=== PATIENT | female | born 1975 | race Caucasian/White ===

== ENCOUNTER 2018-04-12 11:10 | Emergency (ER) | payer OTHER, MEDICAID ==
[~2018-04-12] VITALS: Ht 597.6 cm; Wt 95.5 kg
[~2018-04-12 11:10] MED LIST: CYCL-1 PO; HYDR-569 PO; NEOM10SO7 OT
[2018-04-12] MEDS ORDERED: LIDOcaine 1% 30ml preserv. free vial IJ ONE (12:35)
[2018-04-12] MEDS ORDERED: HYDROcodone/acetaminophen 10/325mg tab PO ONE (12:35)
[2018-04-12] MEDS ORDERED: ondansetron 4mg rapidly disintigrating tab PO ONE (12:35)
[2018-04-12] MEDS ORDERED: TETanus/Pertussis (Acell)/Diphther VAC/PF (Tdap-Adult) 0.5ml syringe IM ONE (12:35)
[2018-04-12] MEDS ORDERED: LIDOcaine 1% (10mg/ml) 5ml syringe IV ONE (13:20)
[2018-04-12] MEDS ORDERED: LIDOcaine 1%/PF 5ML 10 MG/ML VIAL IJ ONE (13:50)
[2018-04-12 15:30] VITALS: BP 148/74
== END 2018-04-12 15:32 | disposition home or self-care (01) ==
LOC: ER 11:11
DX: S06.0X0A Concussion without loss of consciousness, initial encounter (principal); S01.01XA Laceration without foreign body of scalp, initial encounter; S40.022A Contusion of left upper arm, initial encounter; Z79.899 Other long term (current) drug therapy; V47.5XXA Car driver injured in collision with fixed or stationary object in traffic accident, initial encounter; Y93.89 Activity, other specified; Y92.410 Unspecified street and highway as the place of occurrence of the external cause; Y99.9 Unspecified external cause status
CPT/HCPCS: 12002; 70450; 90471; 90715; 96374; 99284; A6449; J2001

== ENCOUNTER 2018-05-30 05:53 | Emergency (ER) | payer MEDICAID ==
[~2018-05-30] VITALS: Ht 170.2 cm; Wt 95.5 kg
[2018-05-30 05:56] VITALS: BP 134/93
[2018-05-30] MEDS ORDERED: HYDR-3965 PO (06:38)
[2018-05-30] MEDS ORDERED: CYCL-1 PO (06:38)
[2018-05-30] MEDS ORDERED: ketorolac trometh. 30mg/ml inj. IM ONE (06:40)
[2018-05-30] MEDS ORDERED: cyclobenzaprine 10mg tablet PO ONE (07:25)
[2018-05-30] MEDS ORDERED: HYDROcodone/acetaminophen 10/325mg tab PO ONE (07:25)
== END 2018-05-30 08:06 | disposition home or self-care (01) ==
LOC: ER 05:53
DX: M54.31 Sciatica, right side (principal); I50.9 Heart failure, unspecified; G89.29 Other chronic pain; F17.200 Nicotine dependence, unspecified, uncomplicated; Z79.2 Long term (current) use of antibiotics; Z79.899 Other long term (current) drug therapy
CPT/HCPCS: 96372; 99283; J1885

== ENCOUNTER 2019-08-03 02:08 | Emergency (ER) | payer MEDICAID ==
[~2019-08-03] VITALS: Ht 175.3 cm; Wt 90.0 kg
[~2019-08-03 02:08] MED LIST changes: +HYDR-4383 PO; -HYDR-569 PO
[2019-08-03] MEDS ORDERED: fentaNYL/PF 50MCG/1 ML 2ML syringe IV ONE ×2 (02:55→06:50)
[2019-08-03] MEDS ORDERED: LORazepam 2 mg/ml vial IV ONE (03:25)
[2019-08-03] MEDS ORDERED: HYDR-4353 PO (04:35)
--- NOTE | 2019-08-03 04:42 | NUR ---
VERBAL ORDER FOR TORADOL 15 MG FROM MD MEDINA
[2019-08-03] MEDS ORDERED: ketorolac trometh. 30mg/ml inj. IV ONE (04:45)
--- NOTE | 2019-08-03 06:29 | NUR ---
EMAN, HUMAN RESOURCES OPERATIONS COORDINATOR IS ON HER WAY.
--- NOTE | 2019-08-03 07:19 | NUR ---
ORTHOTEC DONE WITH PT
[2019-08-03 07:27] VITALS: BP 123/85
== END 2019-08-03 07:31 | disposition home or self-care (01) ==
LOC: ER 02:08
DX: S52.591A Other fractures of lower end of right radius, initial encounter for closed fracture (principal); S52.611A Displaced fracture of right ulna styloid process, initial encounter for closed fracture; I50.9 Heart failure, unspecified; G89.29 Other chronic pain; F17.200 Nicotine dependence, unspecified, uncomplicated; Z95.0 Presence of cardiac pacemaker; Z79.899 Other long term (current) drug therapy; W11.XXXA Fall on and from ladder, initial encounter; Y93.89 Activity, other specified; Y92.89 Other specified places as the place of occurrence of the external cause; Y99.8 Other external cause status
CPT/HCPCS: 29105; 73090; 73110; 73130; 96374; 96375; 96376; 99283; J1885; J3010

== ENCOUNTER 2023-06-24 18:44 | Inpatient (IN) | payer MEDICAID, MEDICARE ==
[~2023-06-24] VITALS: Ht 175.3 cm; Wt 100.0 kg
[2023-06-24 19:03] LABS: BASOPHILS # (AUTO) 0.1 X10'3 (0-0.2); BASOPHILS % (AUTO) 1.1 % (0-1); EOSINOPHILS # (AUTO) 0.1 X10'3 (0-0.9); EOSINOPHILS % (AUTO) 0.7 % (0-6); HEMATOCRIT 45.3 % (35.0-45.0); HEMOGLOBIN 14.6 g/dl (12.0-16.0); LYMPHOCYTES # (AUTO) 2.1 X10'3 (1.1-4.8); LYMPHOCYTES % (AUTO) 24.5 % (21-51); MEAN CORPUSCULAR HGB CONC 32.3 g/dL (33.0-36.5); MEAN CORPUSCULAR VOLUME 92.9 FL (78-98); MEAN PLATELET VOLUME 9.6 FL (7.4-10.4); MONOCYTES # (AUTO) 0.9 X10'3 (0-0.9); MONOCYTES % (AUTO) 10.4 % (2-12); NEUTROPHILS # (AUTO) 5.4 X10'3 (1.8-7.7); NEUTROPHILS % (AUTO) 63.3 % (42-75); PLATELET COUNT 382 X10'3 (140-440); RED BLOOD COUNT 4.87 X10'6 (4.20-5.60); RED CELL DISTRIBUTION WIDTH 14.5 % (11.5-14.5); WHITE BLOOD COUNT 8.6 X10'3 (4.5-11.0)
[2023-06-24 19:19] LABS: ALANINE AMINOTRANSFERASE 41 U/L (12-78); ALBUMIN 3.7 G/DL (3.4-5.0); ALBUMIN/GLOBULIN RATIO 1.1 (1.1-1.5); ALKALINE PHOSPHATASE 72 IU/L (46-116); ANION GAP 8 (8-16); ASPARTATE AMINO TRANSFERASE 31 U/L (10-37); BLOOD UREA NITROGEN 11 MG/DL (7-18); CALCIUM 8.9 MG/DL (8.5-10.1); CHLORIDE 105 MMOL/L (99-107); GLUCOSE 93 MG/DL (70-104); POTASSIUM 3.2 MMOL/L (3.5-5.1); SODIUM 142 MMOL/L (135-145); TOTAL PROTEIN 7.2 G/DL (6.4-8.2); eCRCL 64 ML/MIN; eGFR 53 ML/MIN
[2023-06-24 19:26] LABS: PRO BRAIN NATRIURETIC PEPTIDE 1581 PG/ML (0-125)
[2023-06-24 20:23] LABS: CREATINE KINASE 130 U/L (26-192)
--- NOTE | 2023-06-24 23:00 | NUR ---
relieving RN for break, pt is resting quietly on gurney, a/o x3, resp even and unlabored, pacemaker rep will be coming to ER to assess pacemaker, unable to intregate pacemaker in ER with Marco rowley
[2023-06-25] MEDS ORDERED: potassium Cl 20 mEq SR tablet PO PRN ×2 (01:15)
[2023-06-25] MEDS ORDERED: acetaminophen 325mg tablet PO PRN ×2 (01:15)
[2023-06-25] MEDS ORDERED: magnesium 2GM in 50ml NS 50 ML IV PRN (01:15)
[2023-06-25] MEDS ORDERED: normal saline 1000ml 1,000 ML IV SCH (01:15)
[2023-06-25] MEDS ORDERED: magnesium Cl slow-release 64mg tablet PO PRN (01:15)
[2023-06-25] MEDS ORDERED: HYDROcodone/acetaminophen 5mg/325mg tablet PO PRN (01:15)
[2023-06-25] MEDS ORDERED: HYDROcodone/acetaminophen 10/325mg tab PO PRN (01:15)
[2023-06-25] MEDS ORDERED: ondansetron/PF 4mg/2ml inj IV PRN (01:15)
[2023-06-25] MEDS ORDERED: potassium Cl 40MEQ/1/2NS 520ml 520 ML IV PRN (01:15)
[2023-06-25] MEDS ORDERED: morphine 2 MG/ML inj. syringe IV PRN ×2 (01:15)
[2023-06-25] MEDS ORDERED: magnesium 4gm in 100ml NS 100 ML IV PRN (01:15)
[2023-06-25] MEDS: pantoprazole 40mg Tablet.DR PO SCH ×2 (08:00→20:00)
[2023-06-25] MEDS ORDERED: METO-384 PO (08:34)
[2023-06-25] MEDS ORDERED: FURO20TA4 PO (08:34)
[2023-06-25] MEDS ORDERED: LOSA25TA41 PO (08:34)
[2023-06-25] MEDS ORDERED: furosemide 40mg/4ml inj IV ONE (13:25)
[2023-06-25] MEDS ORDERED: metoprolol succinate 25mg (24-HOUR) SR. Tablet PO ONE (13:30)
[2023-06-25 18:00] VITALS: BP 128/75; PULSE 86; RESP 22; TEMP 97.5; O2SAT 98
[2023-06-25 20:00] VITALS: RESP 22; O2SAT 98
[2023-06-25] MEDS: furosemide 40mg/4ml inj IV SCH (21:01)
[2023-06-25] MEDS: enoxaparin 40mg/0.4ml syringe SQ SCH (21:04)
[2023-06-25 22:00] VITALS: BP 135/80; PULSE 79; RESP 16; TEMP 97.3; O2SAT 99
[2023-06-26] VITALS (11 sets, daily range): BP systolic 126–159; BP diastolic 79–100; PULSE 65–97; RESP 12–16; TEMP 97.2–98.2; O2SAT 94–100
[2023-06-26 06:35] LABS: BASOPHILS # (AUTO) 0.1 X10'3 (0-0.2); BASOPHILS % (AUTO) 0.9 % (0-1); EOSINOPHILS # (AUTO) 0.1 X10'3 (0-0.9); EOSINOPHILS % (AUTO) 1.6 % (0-6); HEMATOCRIT 44.7 % (35.0-45.0); HEMOGLOBIN 14.8 g/dl (12.0-16.0); LYMPHOCYTES # (AUTO) 2.9 X10'3 (1.1-4.8); LYMPHOCYTES % (AUTO) 32.5 % (21-51); MEAN CORPUSCULAR HEMOGLOBIN 30.7 PG (27.0-31.0); MEAN CORPUSCULAR HGB CONC 33.2 g/dL (33.0-36.5); MEAN CORPUSCULAR VOLUME 92.4 FL (78-98); MEAN PLATELET VOLUME 10.1 FL (7.4-10.4); MONOCYTES % (AUTO) 11.1 % (2-12); NEUTROPHILS # (AUTO) 4.8 X10'3 (1.8-7.7); NEUTROPHILS % (AUTO) 53.9 % (42-75); PLATELET COUNT 335 X10'3 (140-440); RED BLOOD COUNT 4.83 X10'6 (4.20-5.60); RED CELL DISTRIBUTION WIDTH 14.5 % (11.5-14.5); WHITE BLOOD COUNT 8.9 X10'3 (4.5-11.0)
[2023-06-26 06:51] LABS: ALANINE AMINOTRANSFERASE 30 U/L (12-78); ALBUMIN 3.3 G/DL (3.4-5.0); ALBUMIN/GLOBULIN RATIO 0.9 (1.1-1.5); ALKALINE PHOSPHATASE 67 IU/L (46-116); ANION GAP 9 (8-16); ASPARTATE AMINO TRANSFERASE 19 U/L (10-37); BILIRUBIN,TOTAL 0.5 MG/DL (0.1-1.0); BLOOD UREA NITROGEN 22 MG/DL (7-18); BUN/CREATININE RATIO 20.4 (10.0-20.0); CHLORIDE 104 MMOL/L (99-107); CREATININE 1.08 MG/DL (0.40-0.90); GLUCOSE 105 MG/DL (70-104); POTASSIUM 4.1 MMOL/L (3.5-5.1); SODIUM 139 MMOL/L (135-145); TOTAL CARBON DIOXIDE 26.3 MMOL/L (24-32); TOTAL PROTEIN 6.9 G/DL (6.4-8.2); eCRCL 65 ML/MIN; eGFR 54 ML/MIN
--- NOTE | 2023-06-26 07:29 | NUR ---
Patient in room PCU 3024. I have received report from FERNANDO aldana and had the opportunity to ask questions and assume patient care.
[2023-06-26] MEDS: pantoprazole 40mg Tablet.DR PO SCH ×2 (07:58→19:57)
[2023-06-26] MEDS ORDERED: metoprolol succinate 25mg (24-HOUR) SR. Tablet PO SCH (08:00)
[2023-06-26] MEDS ORDERED: losartan 25mg tablet PO SCH (08:00)
[2023-06-26] MEDS: furosemide 40mg/4ml inj IV SCH ×2 (08:03→19:57)
[2023-06-26] MEDS ORDERED: heparin 1,000unit/ml 10ml vial 10 ML ONE ×2 (14:26→15:16)
[2023-06-26] MEDS ORDERED: LIDOcaine 1% (10mg/ml) 2ml vial ONE (14:26)
[2023-06-26] MEDS ORDERED: verapamil 2.5 mg/ml inj IV ONE (14:26)
[2023-06-26] MEDS ORDERED: midazolam 1 mg/ML 2ml injection ONE (14:26)
[2023-06-26] MEDS ORDERED: iohexol 350MG/ML 100ml bottle IV ONE (14:26)
[2023-06-26] MEDS ORDERED: nitroGLYCERIN 500mcg/5mL D5W 5 ML IV ONE (14:27)
[2023-06-26] MEDS ORDERED: fentaNYL/PF 50MCG/1 ML 2ML syringe ONE (14:27)
[2023-06-26] MEDS ORDERED: clopidogrel 75mg tablet PO SCH (16:04)
[2023-06-26] MEDS ORDERED: HYDROcodone/acetaminophen 5mg/325mg tablet PO PRN (16:05)
[2023-06-26] MEDS ORDERED: HYDROcodone/acetaminophen 10/325mg tab PO PRN (16:05)
--- NOTE | 2023-06-26 16:30 | NUR ---
patient went for cardiac cath. returned to floor in stable condition. Vas wrist band in place at 13mls. VSS
[2023-06-26] MEDS ORDERED: CLOP75TA34 PO (17:16)
[2023-06-26] MEDS ORDERED: ASPI-1265 PO (17:16)
[2023-06-26] MEDS ORDERED: ATOR10TA87 PO (17:17)
[2023-06-26] MEDS ORDERED: EMPA10TA PO (17:24)
[2023-06-26] MEDS ORDERED: SPIR25TA5 PO (17:24)
[2023-06-26] MEDS ORDERED: NICO-687 TOP (17:25)
--- NOTE | 2023-06-26 18:49 | NUR ---
vascular wrist band at 3mls at this time. patient appears stable post cardiac cath. No bleeding observed. patient is for Dc this evening . report given to Hannah PHILLIPS
[2023-06-26] MEDS: enoxaparin 40mg/0.4ml syringe SQ SCH (19:58)
--- NOTE | 2023-06-26 20:25 | NUR ---
Vascular band deflated by 2 cc q 15 minutes and then removed without any bleeding or other symptoms, Peripheral iv catheters removed, telemetry leads removed. Patient discharge planning done regarding medications, dietary and tobacco and methamphetamine abstnence. Patient discharged via wheelchair to front where she was picked up by a friend to home.
== END 2023-06-26 20:20 | disposition home or self-care (01) | DRG 812 ==
LOC: ER 18:45 → ED HOLD 06-25 00:18 → PCU 3S 06-25 11:13
PROVIDERS: ADMIT Internal Medicine; ATTEND Family Medicine
PROC: 4B02XTZ Measurement of Cardiac Defibrillator, External Approach (ICD-10-PCS; principal; 2023-06-26)
PROC: 4A023N7 Measurement of Cardiac Sampling and Pressure, Left Heart, Percutaneous Approach (ICD-10-PCS; 2023-06-26)
PROC: B2111ZZ Fluoroscopy of Multiple Coronary Arteries using Low Osmolar Contrast (ICD-10-PCS; 2023-06-26)
PROC: 4A033BC Measurement of Arterial Pressure, Coronary, Percutaneous Approach (ICD-10-PCS; 2023-06-26)
DX: T43.621A Poisoning by amphetamines, accidental (unintentional), initial encounter (principal); I49.01 Ventricular fibrillation; I21.A1 Myocardial infarction type 2; I50.20 Unspecified systolic (congestive) heart failure; I13.0 Hypertensive heart and chronic kidney disease with heart failure and stage 1 through stage 4 chronic kidney disease, or unspecified chronic kidney disease; I25.10 Atherosclerotic heart disease of native coronary artery without angina pectoris; I42.7 Cardiomyopathy due to drug and external agent; I47.20 Ventricular tachycardia, unspecified; R56.9 Unspecified convulsions; N18.30 Chronic kidney disease, stage 3 unspecified; G89.29 Other chronic pain; M54.9 Dorsalgia, unspecified; E87.6 Hypokalemia; F15.10 Other stimulant abuse, uncomplicated; F17.210 Nicotine dependence, cigarettes, uncomplicated; Z95.810 Presence of automatic (implantable) cardiac defibrillator; Z79.899 Other long term (current) drug therapy; Y92.89 Other specified places as the place of occurrence of the external cause
CPT/HCPCS: 36415; 71045; 80053; 82550; 83880; 84484; 85025; 93005; 93306; 93458; 99152; 99153; 99285; A6258; C1751; C1769; C1894; G0378; J1644; J1650; J1940; J2250; J3010; J3490; J7030; Q9967

== ENCOUNTER 2024-03-22 12:11 | Day surgery (SDC) | payer MEDICAID ==
[2024-03-18 13:01] LABS: BASOPHILS # (AUTO) 0.1 X10'3 (0-0.2); BASOPHILS % (AUTO) 0.9 % (0-1); EOSINOPHILS # (AUTO) 0.1 X10'3 (0-0.9); EOSINOPHILS % (AUTO) 1.3 % (0-6); HEMATOCRIT 44.1 % (35.0-45.0); HEMOGLOBIN 14.9 g/dl (12.0-16.0); LYMPHOCYTES # (AUTO) 2.6 X10'3 (1.1-4.8); LYMPHOCYTES % (AUTO) 35.4 % (21-51); MEAN CORPUSCULAR HEMOGLOBIN 31.7 PG (27.0-31.0); MEAN CORPUSCULAR HGB CONC 33.8 g/dL (33.0-36.5); MEAN CORPUSCULAR VOLUME 93.8 FL (78-98); MEAN PLATELET VOLUME 8.9 FL (7.4-10.4); MONOCYTES # (AUTO) 0.7 X10'3 (0-0.9); MONOCYTES % (AUTO) 8.9 % (2-12); NEUTROPHILS % (AUTO) 53.5 % (42-75); PLATELET COUNT 341 X10'3 (140-440); RED CELL DISTRIBUTION WIDTH 13.7 % (11.5-14.5); WHITE BLOOD COUNT 7.4 X10'3 (4.5-11.0)
[2024-03-18 13:15] LABS: APTT 26 SECONDS (22-32); PROTHROMBIN TIME 10.5 SECONDS (9.0-12.0)
[2024-03-18 13:17] LABS: ALBUMIN 3.6 G/DL (3.4-5.0); ANION GAP 8 (8-16); BLOOD UREA NITROGEN 11 MG/DL (7-18); BUN/CREATININE RATIO 11.5 (10.0-20.0); CALCIUM 8.6 MG/DL (8.5-10.1); CHLORIDE 103 MMOL/L (99-107); CHOL/HDL RATIO 2.4 (0.00-4.99); CHOLESTEROL 122 MG/DL (0-200); CREATININE 0.96 MG/DL (0.40-0.90); GLUCOSE 85 MG/DL (70-104); HDL CHOLESTEROL 50 MG/DL (35-60); LDL CHOLESTEROL 59 MG/DL (50-100); POTASSIUM 3.5 MMOL/L (3.5-5.1); SODIUM 138 MMOL/L (135-145); TOTAL CARBON DIOXIDE 27.5 MMOL/L (24-32); TRIGLYCERIDES 99 MG/DL (20-135); eGFR 62 ML/MIN
[~2024-03-22] VITALS: Ht 175.3 cm; Wt 106.2 kg
[~2024-03-22 12:11] MED LIST changes: +CLOP75TA34 PO; -CYCL-1 PO; +EMPA10TA PO; +FURO20TA4 PO; -HYDR-4383 PO; +LOSA25TA41 PO; +METO-384 PO; -NEOM10SO7 OT; +SPIR25TA5 PO
[2024-03-22] MEDS ORDERED: EMPA10TA PO (12:45)
[2024-03-22] MEDS ORDERED: ATOR10TA70 PO (12:45)
[2024-03-22] MEDS ORDERED: SACU1TAB PO (12:45)
[2024-03-22] MEDS ORDERED: SPIR25TA5 PO (12:45)
[2024-03-22] MEDS ORDERED: CLOP-32 PO (12:45)
[2024-03-22 12:52] VITALS: BP 152/95; PULSE 90; RESP 16; TEMP 97.8; O2SAT 98
[2024-03-22] MEDS: normal saline 1,000 ML IV SCH (13:16)
[2024-03-22] MEDS: LORazepam 0.5 MG tablet PO PRN (13:16)
[2024-03-22] MEDS: diphenhydrAMINE 25mg capsule PO PRN (13:16)
[2024-03-22 13:56] VITALS: RESP 16; O2SAT 98
[2024-03-22] MEDS ORDERED: midazolam 1 mg/ML 2ml injection ONE (15:46)
[2024-03-22] MEDS ORDERED: LIDOcaine 1% (10mg/ml) 2ml vial ONE (15:46)
[2024-03-22] MEDS ORDERED: verapamil 2.5 mg/ml inj IV ONE (15:46)
[2024-03-22] MEDS ORDERED: heparin 1,000unit/ml 10ml vial 0 ML ONE (15:47)
[2024-03-22] MEDS ORDERED: heparin 1,000 UNITS/NS 500ml 0 ML ONE (15:47)
[2024-03-22] MEDS ORDERED: iohexol 350MG/ML 100ml bottle IV ONE (15:47)
[2024-03-22] MEDS ORDERED: fentaNYL/PF 50MCG/1 ML 2ML syringe ONE (15:47)
[2024-03-22] MEDS ORDERED: nitroGLYCERIN 500mcg/5mL D5W 5 ML IV ONE (15:49)
== END 2024-03-22 16:30 | disposition home or self-care (01) ==
LOC: SSTAY O 12:11
PROVIDERS: ATTEND Student in an Organized Health Care Education/Training Program
DX: I25.10 Atherosclerotic heart disease of native coronary artery without angina pectoris (principal); Z53.8 Procedure and treatment not carried out for other reasons; I11.0 Hypertensive heart disease with heart failure; I50.22 Chronic systolic (congestive) heart failure; E78.00 Pure hypercholesterolemia, unspecified; F41.9 Anxiety disorder, unspecified; F32.A Depression, unspecified; I25.2 Old myocardial infarction; I42.0 Dilated cardiomyopathy; Z79.899 Other long term (current) drug therapy; Z88.8 Allergy status to other drugs, medicaments and biological substances
CPT/HCPCS: 36415; 80048; 80061; 85025; 85610; 85730; 93005; J3490; J7030; Q0163; A6258; A6449; J1644; J2250; J3010; Q9967

== ENCOUNTER 2025-02-15 17:32 | Emergency (ER) | payer MEDICAID ==
[~2025-02-15] VITALS: Ht 175.3 cm; Wt 103.5 kg
[~2025-02-15 17:32] MED LIST changes: +ATOR10TA70 PO; +CLOP-32 PO; -CLOP75TA34 PO; -LOSA25TA41 PO; +SACU1TAB PO
--- NOTE | 2025-02-15 17:43 | Physician Documentation ---
History of Present Illness ~ Chief Complaint: Abscess Stated Complaint: "FINGER INFECTED AND IN PAIN" Time Seen by MD: 21:04 Primary Medical Doctor: Madai at [facility] HPI This is a 49-year-old female who presents with a abscess to her left 4th finger. Also requesting refill on her Lasix 20 mg.. Denies any other current symptoms. Denies any fevers or nausea vomit Day of Onset: Feb 15, 2025 Tetanus Within 5 Years: Yes Medication Reconciliation Allergies: Coded Allergies: No Known Allergies (Unverified , 02/15/25) Scheduled Atorvastatin Calcium (Atorvastatin Calcium), 1 TAB PO DAILY, (Reported) Clopidogrel Bisulfate (Plavix), 1 TAB PO DAILY, (Reported) Empagliflozin (Jardiance), 1 TAB PO DAILY, (Reported) Furosemide (Furosemide), 1 TAB PO DAILY, (Reported) Furosemide* (Lasix*), 1 TAB PO DAILY Metoprolol Succinate (Metoprolol Succinate), 1 TAB PO DAILY, (Reported) Sacubitril/Valsartan (Entresto 24 mg-26 mg Tablet), 1 TAB PO BID, (Reported) Spironolactone (Spironolactone), 0.5 TAB PO DAILY, (Reported) Sulfamethoxazole/Trimethoprim (Septra Ds Tab), 1 TAB PO Q12H Past Medical History Past Medical History: Congestive Heart Failure, Chronic Back Pain Past Surgical History: pacemaker Alcohol Use: None Drug Use: none Lives with: Family Lives In: Home Review of Systems All Other Systems at this time: Reviewed and Negative ROS As stated above in the HPI, otherwise all systems are reviewed and negative. Physical Exam Vital Signs: Temperature: 97.8, Source: Temporal, Heart Rate: 91, Respiratory Rate: 18, BP: 167/99, Pulse Oximetry: 99, Weight: 103.450 Physical Exam VITALS: Reviewed and as above. GENERAL: Alert, nontoxic appearing, no apparent distress. RESPIRATORY: No increased work of breathing, no respiratory distress, speaking in full clear sentences MUSCULOSKELETAL: Erythema swelling to the left 4th finger, ring in place Progress Results/Orders Results/Orders Vital Signs 02/15/25 17:35 Temp 97.8 Pulse 91 Resp 18 B/P (MAP) 167/99 Pulse Ox 99 Medical Decision Making Findings MSE performed in triage and patient returned to ED lobby by nursing staff Had photo technologist remove patient's ring via Dremel tool as there was circumferential swelling on the finger, I do not see any sign of a fluctuant area for me to drain. We will place her on antibiotics and advised her to follow up Differential Dx:Considerations: Include: Abscess, Bacteremia, Cellulitis, Erysipelas, Lymphangitis, Paronychia, Other (Flexor tenosynovitis) Departure Disposition: HOME / SELF CARE / HOMELESS Impression: Primary Impression: Cellulitis Condition: Stable Discharge Instructions: Cellulitis, Adult, [id number] Referrals: NO PRIMARY CARE PROVIDER (PCP) Prescriptions Furosemide* (Lasix*) 20 Mg Tablet 1 TAB PO DAILY for 30 Days, #30 TAB Prov: CATERINA RODGERS NP 02/15/25 Sulfamethoxazole/Trimethoprim (Septra Ds Tab) 800 Mg/160 Mg Tablet 1 TAB PO Q12H for 10 Days, #20 TAB Prov: CATERINA RODGERS NP 02/15/25 Education Educated: Patient Educated regarding: diagnosis Signature Scribe Signature: d Attestation: The note accurately reflects work and decisions made by me.Caterina Louie NP 02/15/25 21:32 MOOK POWELL WHIZZER OPERATOR Feb 15, 2025 17:43 CATERINA RODGERS NP Feb 15, 2025 21:16
[2025-02-15] MEDS ORDERED: SULF1TAB45 PO (21:16)
[2025-02-15] MEDS ORDERED: FURO-150 PO (21:17)
[2025-02-15 21:43] VITALS: BP 135/77; PULSE 88; RESP 18; TEMP 97.8; O2SAT 98
[2025-02-15] MEDS: sulfamethoxazole/trimethoprim DS (800/160mg) tablet PO ONE (21:52)
== END 2025-02-15 21:54 | disposition home or self-care (01) ==
LOC: ER 17:33
DX: L03.012 Cellulitis of left finger (principal); C49.9 Malignant neoplasm of connective and soft tissue, unspecified; I50.9 Heart failure, unspecified; Z95.0 Presence of cardiac pacemaker
CPT/HCPCS: 99283

== ENCOUNTER 2025-09-21 04:09 | Emergency (ER) | payer MEDICAID ==
[~2025-09-21] VITALS: Ht 175.3 cm; Wt 102.0 kg
--- NOTE | 2025-09-21 04:18 | ELECTROCARDIOGRAPH REPORT ---
[facility] Test Date: 2025-09-21 Test Time: 04:16:05 Pat Name: KAUSHAL BARTON Department: EMERGENCY ROOM Room: Gender: F Cinder Man: ЮЛИЯ : 1975 Requested By: TASHI LOPEZ Order Number: [id number] Reading MD: Dr. GRIS Santiago Measurements Intervals Warren Rate: 89 P: 84 OR: 157 QRS: -38 QRSD: 123 T: 100 QT: 401 QTc: 488 Interpretive Statements Sinus rhythm Right atrial enlargement IVCD, consider atypical RBBB Left ventricular hypertrophy Nonspecific T abnormalities, lateral leads Electronically Signed On 09-22-2025 16:52:[address] GRIS Santiago Please click the below link to view image of tracing.
--- NOTE | 2025-09-21 04:29 | Physician Documentation ---
History of Present Illness ~ Chief Complaint: Shortness of Breath Stated Complaint: SOB Time Seen by MD: 04:28 Primary Medical Doctor: Madai at [facility] HPI Patient presents to the emergency room with chief complaint of shortness of breath over the past five days. She does have history of congestive heart failure. She has seen within the past 24 hours at [facility] where she states she has told her shortness of breath that has likely secondary to CHF exacerbation and told to increase her Lasix. She states she would not feel comfortable with this secondary to concern of her kidneys. Patient does have a retouching operator, Dr. Garcia but states she has not seen him in a long time. Medication Reconciliation Allergies: Coded Allergies: No Known Allergies (Unverified , 09/21/25) Scheduled Atorvastatin Calcium (Atorvastatin Calcium), 1 TAB PO DAILY, (Reported) Clopidogrel Bisulfate (Plavix), 1 TAB PO DAILY, (Reported) Empagliflozin (Jardiance), 1 TAB PO DAILY, (Reported) Furosemide (Furosemide), 1 TAB PO DAILY, (Reported) Metoprolol Succinate (Metoprolol Succinate), 1 TAB PO DAILY, (Reported) Sacubitril/Valsartan (Entresto 24 mg-26 mg Tablet), 1 TAB PO BID, (Reported) Spironolactone (Spironolactone), 0.5 TAB PO DAILY, (Reported) Past Medical History Past Medical History: Congestive Heart Failure, Chronic Back Pain Past Surgical History: pacemaker Alcohol Use: None Drug Use: none Lives with: Family Lives In: Home Review of Systems ROS All review of systems negative except as per HPI Physical Exam Vital Signs: Temperature: 96.3, Source: Temporal, Heart Rate: 92, Respiratory Rate: 17, BP: 148/98, Pulse Oximetry: 94, Weight: 102.000 Physical Exam General: Patient is awake, alert, oriented x4 in no acute distress Head: Normocephalic and atraumatic. Eyes: Conjunctival normal. EOMI. PERRL. ENT: Mucous membranes moist. Neck: Supple, trachea is midline. Chest: Clear to auscultation bilaterally without rales, rhonchi, or wheezes. There is no accessory muscle use or retractions. Progress Results/Orders Results/Orders Completed Orders - ARTEMIO NUNEZ DO Furosemide 20mg Inj (Lasix Inj) (09/21/25 07:40) Medications Received in ER Medications (Trade) Dose Ordered Sig/Stefania Route PRN Reason Start Time Stop Time Status Last Admin Dose Admin (Lasix inj) 20 mg ONCE ONCE IV 09/21/25 07:40 09/21/25 07:41 DC 09/21/25 07:51 20 MG Vital Signs 09/21/25 09/21/25 09/21/25 09/21/25 04:17 04:33 05:47 06:21 Temp 96.3 96.3 Pulse 92 72 Resp 17 16 18 B/P (MAP) 148/98 137/89 (105) Pulse Ox 94 95 O2 Flow Rate 0 09/21/25 09/21/25 09/21/25 06:21 07:30 08:44 Pulse 90 84 79 Resp 16 16 16 B/P (MAP) 137/93 (108) 124/88 (100) 129/95 (106) Pulse Ox 97 95 98 O2 Flow Rate 0 0 0 Laboratory Tests Test 09/21/25 04:22 09/21/25 07:14 White Blood Count 7.4 Red Blood Count 4.70 Hemoglobin 14.5 Hematocrit 42.8 Mean Corpuscular Volume 91.1 Mean Corpuscular Hemoglobin 30.9 Mean Corpuscular Hemoglobin Concent 33.9 Red Cell Distribution Width 14.4 Platelet Count 311 Mean Platelet Volume 9.2 Neutrophils (%) (Auto) 65.8 Lymphocytes (%) (Auto) 21.4 Monocytes (%) (Auto) 9.6 Eosinophils (%) (Auto) 1.9 Basophils (%) (Auto) 1.3 H Neutrophils # (Auto) 4.9 Lymphocytes # (Auto) 1.6 Monocytes # (Auto) 0.7 Eosinophils # (Auto) 0.1 Basophils # (Auto) 0.1 CBC Comment D-Dimer 2.15 H D-Dimer Comment Sodium Level 141 Potassium Level 4.3 Chloride Level 106 Carbon Dioxide Level 29.1 Anion Gap 6 L Blood Urea Nitrogen 18 Creatinine 0.97 H Estimated GFR/1.73 m2 60 BUN/Creatinine Ratio 18.6 Glucose Level 121 H Calcium Level 8.0 L Troponin I High Sensitivity 21 19 Pro-B-Type Natriuretic Peptide 3558 H Albumin 3.0 L Chemistry Comments Troponin I High Sens Percent Delta 9 Troponin I Hi Sens Absolute Change -2 EKG/XRAY/CT/US/VASC/MRI EKG : Additional Comment EKG interpreted by myself shows time of 0416, rate 89, sinus rhythm, borderline left axis deviation, nonspecific ST-T changes. Medical Decision Making Additional information obtaine: old records Findings Patient presents to the emergency room with shortness of breath x5 days. Differentials include but are not limited to CHF, viral syndrome, pneumonia, pulmonary embolism therefore emergent labs ordered. Heart Score: 3 Differential Dx:Considerations: Include: anxiety, asthma, bronchitis, cardiogenic shock, CHF, COPD, dysrhythmia, hypertension, accelerated, hypertension, essential, hypertension, malignant, hyperventilation, hyponatremia, myocardial infarction, panic attack, pneumonia, pneumonitis, pneumothorax, PSVT, pulmonary embolism, respiratory distress, respiratory failure, sinusitis, upper resp. infection, other Departure Disposition: HOME / SELF CARE / HOMELESS Impression: Primary Impression: Acute exacerbation of congestive heart failure Condition: Improved Discharge Instructions: Heart Failure Exacerbation Referrals: NO PRIMARY CARE PROVIDER (PCP) Prescriptions Benzonatate* (Benzonatate*) 100 Mg Capsule 1 CAP PO Q8H for cough for 10 Days, #30 CAP Prov: ARTEMIO NUNEZ DO 09/21/25 Education Educated: Patient Educated regarding: diagnosis, treatment, prognosis, need for follow up Additional Comment Additional Comment Date: Sep 21, 2025 Time: 07:41 Additional note by Artemio Nunez DO: I took over the care of this patient from previous physician. I reviewed any previous notes available, obtain my own history, review of systems and physical examination was performed by myself. In brief, this is a this is a 1-year-old female with a known history of congestive heart failure, has not seen her retouching operator in quite some time, presented for evaluation of shortness a breath for the last five days. Evidently she has been seen at [facility] and was told that she does exace rbation of CHF, was told to increase her Lasix. She did not feel comfortable following the physician's advice due to concern for her kidneys and came here essentially for a 2nd opinion. Hemodynamics reviewed. The patient is not febrile, not tachycardic, no evidence of hypotension respiratory distress. CBC is normal, no evidence of leukocytosis, no evidence of anemia, normal platelets, no neutrophilic predominance. Coagulation panel showed elevated D- dimer of 2.15. CTA was obtained with the previous provider. Chemistry panel was obtained showing normal kidney function with a normal creatinine of 0.97. She does have in fact elevated BNP of 3500. Initial troponin is negative. Advanced imaging of the chest was obtained showing a no PE. Incidental finding of tree-in-bud right middle lobe opacities. Which was interpreted as inflammatory versus infectious Has no evidence of infectious process of the time. 2nd troponin is negative. Patient is hemodynamically stable for discharge home with follow with their primary care provider. [ ] Specific and cautious return precautions provided and discussed with full understanding. Any incidental findings were also discussed and follow up recommendations given. [] All questions answered. Patient/family were able to verbalize back return precautions. Patient/family agree to plan. Copies of imaging and laboratory studies were provided. Signature Scribe Signature: No scribe Attestation: This note accurately reflects clinical decisions, work performed by myself, DO JESSICA Lundberg JESSE G MD Sep 21, 2025 04:29 ARTEMIO NUNEZ DO Sep 21, 2025 07:44
[2025-09-21 04:35] LABS: MEAN PLATELET VOLUME 9.2 FL (7.4-10.4); RED CELL DISTRIBUTION WIDTH 14.4 % (11.5-14.5)
[2025-09-21 04:55] LABS: CREATININE 0.97 MG/DL (0.40-0.90); PRO BRAIN NATRIURETIC PEPTIDE 3558 PG/ML (0-125); TOTAL CARBON DIOXIDE 29.1 MMOL/L (24-32); eCRCL 71 ML/MIN; eGFR 60 ML/MIN
--- NOTE | 2025-09-21 04:57 | RADIOLOGY REPORT ---
CHEST RADIOGRAPH Indication: CP Technique: Single frontal view of the chest was obtained COMPARISON: DI CHEST,SINGLE VIEW on DOS: 06/24/23 FINDINGS: Lines and Tubes: None. Left anterior chest wall cardiac pacing device. Lungs: Clear Pleura: No effusion. No pneumothorax. Cardiomediastinal contours: Cardiomegaly. Bones: Unremarkable IMPRESSION: 1. Cardiomegaly.
[2025-09-21 05:47] VITALS: TEMP 96.3
--- NOTE | 2025-09-21 07:07 | RADIOLOGY REPORT ---
CTA Chest with intravenous contrast INDICATION: Shortness of breath with elevated D-dimer COMPARISON: DI CHEST,SINGLE VIEW on DOS: 09/21/25, DI CHEST,SINGLE VIEW on DOS: 06/24/23 TECHNIQUE: Multidetector spiral CTA of the chest was performed of the chest with intravenous contrast. The contrast information is not submitted. PULMONARY ANGIOGRAPHY PROTOCOL was utilized using a bolus-tracking technique centered on the main pulmonary artery. Coronal and sagittal multiplanar and MIP reformats were performed. Radiation Dose : 1. Chest: CTDI volume is 24.5 mGy. Dose-length product is 897.7 mGy*cm The dose indicators for CT are the volume Computed Tomography (CT) Dose Index (CTDIvol) and the Dose Length Product (DLP), and are measured in units of mGy and mGy-cm, respectively. These indicators are not patient dose, but values generated from the CT scanner acquisition factors. The report includes radiation exposure data for exposures received during this examination. FINDINGS: Pulmonary artery: No central, lobar or proximal segmental pulmonary embolus. Normal caliber main pulmonary artery. Lower neck: Unremarkable thyroid. Lungs: There are tree-in-bud opacities in the right middle lobe. Nodular opacities noted in the right lung apex. Central airways: Patent Pleura: No pneumothorax. No pleural effusions. Heart/Vascular Structures: AICD/ pacemaker in the right ventricle. The heart is normal in size. No pericardial effusion. Thoracic aorta is normal in caliber. No aneurysm or dissection. Lymph Nodes: No mediastinal or hilar lymphadenopathy. Esophagus: Grossly unremarkable. Musculoskeletal: Unremarkable. Body wall: Unremarkable. Upper abdomen: Unremarkable. IMPRESSION: 1. No evidence of pulmonary embolism. 2. Tree-in-bud opacities in the right middle lobe and nodular opacities in the right lung apex. Findings are suggestive of infectious or inflammatory process.
[2025-09-21] MEDS ORDERED: BENZ-38 PO (09:07)
[2025-09-21 09:16] VITALS: BP 123/81; PULSE 82; RESP 16; O2SAT 97
== END 2025-09-21 09:20 | disposition home or self-care (01) ==
LOC: ER 04:10
DX: I50.9 Heart failure, unspecified (principal); G89.29 Other chronic pain; Z95.0 Presence of cardiac pacemaker; Z79.899 Other long term (current) drug therapy
CPT/HCPCS: 36415; 71045; 71275; 80048; 83880; 84484; 85025; 85379; 93005; 96374; 99285; J1938; Q9967